=== PATIENT | female | born 1975 | race Caucasian/White ===

== ENCOUNTER 2017-01-06 20:49 | Emergency (ER) | payer OTHER ==
--- NOTE | ~2017-01-06 | EKG ---
PATIENT: STANLEY MENEZES UNIT #: [id number] Ventricular Rate: 113 BPM Atrial Rate: 113 BPM P-R Interval: 128 ms QRS Duration: 82 ms Q-T Interval: 372 ms QTC Calculation(Bezet): 510 ms P [place]: 52 degrees Calculated R [place]: 56 degrees Calculated T [place]: -58 degrees Diagnosis Line: Sinus tachycardia Diagnosis Line: T wave abnormality, consider anterior ischemia Diagnosis Line: Abnormal ECG Diagnosis Line: No previous ECGs available Diagnosis Line: Confirmed by GALE ALEXANDRE MD ([id number]) on Diagnosis Line: 01/07/2017 5:08:49 PM INTERPRETING MD: BALDOMERO BUSTILLO
[2017-01-06 23:28] LABS: URINE SOURCE CLEAN CATCH
[2017-01-06 23:42] LABS: URINE APPEARANCE CLEAR; URINE BILIRUBIN NEG (NEG); URINE BLOOD 2+ (NEG); URINE COLOR YELLOW; URINE GLUCOSE NEG (NEG); URINE KETONE NEG (NEG); URINE LEUKOCYTE ESTERASE NEG (NEG); URINE NITRATE NEG (NEG); URINE PROTEIN TRACE (NEG); URINE SPECIFIC GRAVITY 1.035 (1.003-1.035); URINE UROBILINOGEN 0.2 MG/DL (NEG)
[2017-01-06 23:43] LABS: BASOPHIL% 0.3 % (0-2.5); EOSINOPHIL% 0.1 % (0.0-7.0); HEMOGLOBIN 12.1 gm/dL (12.0-16.0); MEAN CELL VOLUME 90.8 FL (83-96); MEAN CORPUSCULAR HEMOGLOBIN 30.4 PG (28-34); MEAN CORPUSCULAR HGB CONC 33.5 g/dL (30-36); MEAN PLATELET VOLUME 7.1 FL (6.5-11.5); MONOCYTE# 0.6 X10e3 (0-1.0); MONOCYTE% 5.7 % (3.0-12.0); NEUTROPHIL# 8.4 X10e3 (1.5-7.1); NEUTROPHIL% 75.9 % (40-75); PLATELET COUNT 339 X10e3 (140-420); RED BLOOD COUNT 3.97 X10e (3.90-5.30); RED CELL DISTRIBUTION WIDTH 14.9 % (11.0-15.5)
[2017-01-06 23:44] LABS: CULTURE INDICATED? YES; URINE BACTERIA AUWI 1+ (NEGATIVE); URINE SQUAMOUS EPITHELIAL CELL OCC /[HPF]
[2017-01-06 23:47] LABS: DIFF IND NO
[2017-01-07 00:04] LABS: CALCIUM SERUM 9.2 mg/dL (8.4-10.2); POTASSIUM 3.3 mmol/L (3.5-5.1)
== END 2017-01-07 00:41 | disposition home or self-care (01) ==
LOC: CED 20:49
PROVIDERS: Emergency Medicine
DX: F11.23 Opioid dependence with withdrawal (principal); I10 Essential (primary) hypertension; F17.210 Nicotine dependence, cigarettes, uncomplicated; F32.9 Major depressive disorder, single episode, unspecified; Z88.0 Allergy status to penicillin; Z88.5 Allergy status to narcotic agent
CPT/HCPCS: 36415; 80048; 81003; 85025; 87086; 93005; 96361; 96374; 99284; J2060